=== PATIENT | female | born 1980 | race Caucasian/White ===

== ENCOUNTER 2019-03-18 20:04 | Emergency (ER) | payer OTHER ==
[~2019-03-18] VITALS: Ht 152.4 cm; Wt 63.5 kg
[~2019-03-18 20:04] MED LIST: MOBIC15 MG; NEURONTIN600 MG PO; TRAMADOL HCL-AP1 TAB PO
[2019-03-18] MEDS ORDERED: VERAPAMIL ER300 MG (20:21)
[2019-03-18] MEDS ORDERED: PROZAC10 MG (20:21)
== END 2019-03-18 23:30 | disposition home or self-care (01) ==
LOC: ER 20:04
DX: G44.89 Other headache syndrome (principal); K52.89 Other specified noninfective gastroenteritis and colitis; R10.13 Epigastric pain; E86.0 Dehydration

== ENCOUNTER 2019-08-06 07:55 | Emergency (ER) | payer OTHER ==
[~2019-08-06] VITALS: Ht 152.4 cm; Wt 72.6 kg
[~2019-08-06 07:55] MED LIST changes: +PROZAC10 MG; +VERAPAMIL ER300 MG
[2019-08-06] MEDS ORDERED: VERELAN240 MG PO (08:17)
[2019-08-06] MEDS ORDERED: TRAZODONE HCL100 MG PO (08:18)
[2019-08-06] MEDS ORDERED: TOPAMAX25 MG PO (08:18)
[2019-08-06] MEDS ORDERED: PRILOSEC OTC20 MG PO (08:19)
[2019-08-06] MEDS ORDERED: DICY20TA PO (08:19)
== END 2019-08-06 15:00 | disposition home or self-care (01) ==
LOC: ER 07:55
DX: R51 Headache (principal); R53.1 Weakness

== ENCOUNTER 2023-11-02 07:46 | Inpatient (IN) | payer OTHER ==
[~2023-11-02] VITALS: Ht 152.4 cm; Wt 99.8 kg
[~2023-11-02 07:46] MED LIST changes: +DICY20TA PO; +PRILOSEC OTC20 MG PO; +TOPAMAX25 MG PO; +TRAZODONE HCL100 MG PO; +VERELAN240 MG PO
[2023-11-02 08:43] LABS: HEMATOCRIT 38.4 % (36.0-45.00); HEMOGLOBIN 13.3 g/dL (12.0-15.00); MEAN CELL VOLUME 89.7 fL (80.00-100.00); MEAN CORPUSCULAR HGB CONC 34.6 g/dl (32.0-36.0); PLATELET COUNT 216 K/uL (150-450); RED BLOOD COUNT 4.28 M/uL (4.00-6.00); RED CELL DISTRIBUTION WIDTH 13.1 % (11.5-14.5)
[2023-11-02 09:00] LABS: PARTIAL THROMBOPLASTIN TIME 27.6 SECONDS (22.0-34.0); PROTHROMBIN TIME 10.5 SECONDS (9.0-11.5)
[2023-11-02] MEDS ORDERED: ONDANSETRON HCL 2 MG/ML VIAL IV PRN (09:30)
[2023-11-02] MEDS ORDERED: MORPHINE SULFATE 4 MG/ML CARTRIDGE IV PRN (09:30)
[2023-11-02] MEDS ORDERED: GABAPENTIN 800 MG TABLET PO PRN (09:30)
[2023-11-02] MEDS ORDERED: ACETAMINOPHEN 500 MG GEL..CAP PO PRN (09:30)
[2023-11-02] MEDS ORDERED: CLONAZEPAM 1 MG TABLET PO PRN (09:30)
[2023-11-02] MEDS ORDERED: RINGERS SOLUTION,LACTATED 1,000 ML IV SCH (09:30)
[2023-11-02] MEDS ORDERED: HYOSCYAMINE SULFATE 0.125 MG TAB.SUBL SL PRN (09:30)
[2023-11-02 09:41] LABS: ALBUMIN 3.8 gm/dL (3.4-5.0); BILIRUBIN TOTAL 0.35 mg/dL (0.3-1.2); CALCIUM 9.1 mg/dL (8.5-10.1); CREATININE SERUM 0.88 mg/dL (0.55-1.02); GFR 70.13; GLOBULINA 3.3 G/DL (2.4-3.5); POTASSIUM 3.76 mEq/L (3.5-5.1); TOTAL PROTEIN 7.1 gm/dL (6.4-8.2)
[2023-11-02 11:00] LABS: URINE APPEARANCE Clear; URINE BILIRRUBIN Negative (NEGATIVE); URINE BLOOD Negative; URINE COLOR Yellow; URINE GLUCOSE Negative (NEGATIVE); URINE LEUKOCYTE Negative; URINE NITRATE Negative; URINE PROTEIN Negative (NEGATIVE); URINE UROBILINOGEN 0.2 E.U./dl
[2023-11-02 11:05] LABS: URINE BACTERIA 17.6 uL (0.0-1933)
[2023-11-02 11:29] LABS: URINE EPITHELIAL CELLS 0.4 uL (0.0-38.8); URINE RBC 0.7 uL (0.0-20.8); URINE WBC 0.6 uL (0.0-23.2)
[2023-11-02] MEDS ORDERED: VERAPAMIL HCL 120 MG TABLET PO SCH (17:00)
[2023-11-02] MEDS ORDERED: DEXAMETHASONE SODIUM PHOSPHATE 4 MG/ML VIAL IV SCH (17:00)
[2023-11-02] MEDS ORDERED: PATIENTS OWN MEDICATION (MEDICAMENTO EN PISO) PO SCH ×2 (17:00)
[2023-11-02] MEDS ORDERED: TRAZODONE HCL 50 MG TABLET PO SCH (21:00)
[2023-11-02] MEDS ORDERED: FAMOTIDINE/PF 20 MG/2 ML VIAL IV PUSH SCH (21:00)
[2023-11-02] MEDS ORDERED: MORPHINE SULFATE 2 MG/ML CARTRIDGE IV PRN (22:45)
[2023-11-02] MEDS ORDERED: NALOXONE HCL 0.4 MG/ML AMPUL IV PRN (23:00)
[2023-11-02] MEDS ORDERED: DIPHENHYDRAMINE HCL 50 MG/ML VIAL 1ML IV PRN (23:00)
[2023-11-03] MEDS ORDERED: FLUOXETINE HCL 20 MG CAPSULE PO SCH (09:00)
[2023-11-03] MEDS ORDERED: SENNA/DOCUSATE SODIUM 1 TAB TABLET PO SCH (21:00)
[2023-11-04] MEDS ORDERED: PATIENTS OWN MEDICATION (MEDICAMENTO EN PISO) PO SCH (09:00)
[2023-11-04] MEDS ORDERED: fentaNYL 25 MCG PATCH.TD72 TD SCH (20:45)
[2023-11-04] MEDS ORDERED: DEXAMETHASONE SODIUM PHOSPHATE 4 MG/ML VIAL IV SCH (21:00)
[2023-11-05] MEDS ORDERED: DEXAMETHASONE SODIUM PHOSPHATE 4 MG/ML VIAL ONE (21:22)
[2023-11-06] MEDS ORDERED: DIPHENHYDRAMINE HCL 50 MG/ML VIAL 1ML IV PRN (15:45)
[2023-11-06] MEDS ORDERED: DEXAMETHASONE SODIUM PHOSPHATE 4 MG/ML VIAL ONE (20:39)
[2023-11-07 07:55] LABS: HEMATOCRIT 37.4 % (36.0-45.00); HEMOGLOBIN 12.6 g/dL (12.0-15.00); MEAN CELL VOLUME 88.9 fL (80.00-100.00); MEAN CORPUSCULAR HEMOGLOBIN 30.1 pg (27.00-32.0); MEAN CORPUSCULAR HGB CONC 33.8 g/dl (32.0-36.0); PLATELET COUNT 187 K/uL (150-450); RED CELL DISTRIBUTION WIDTH 13.2 % (11.5-14.5)
[2023-11-07 08:11] LABS: BILIRUBIN TOTAL 0.19 mg/dL (0.3-1.2); CALCIUM 8.7 mg/dL (8.5-10.1); CREATININE SERUM 0.83 mg/dL (0.55-1.02); GFR 75.03; GLOBULINA 3.1 G/DL (2.4-3.5); POTASSIUM 4.26 mEq/L (3.5-5.1); TOTAL PROTEIN 6.1 gm/dL (6.4-8.2)
[2023-11-08] MEDS ORDERED: fentaNYL 25 MCG PATCH.TD72 TD SCH (10:00)
[2023-11-10] MEDS ORDERED: VERAPAMIL HCL120 M3 PO (18:15)
[2023-11-10] MEDS ORDERED: PROZAC20 MG PO (18:16)
[2023-11-10] MEDS ORDERED: CLONAZEPAM1 MG PO (18:16)
[2023-11-10] MEDS ORDERED: GABAPENTIN800 MG PO (18:18)
[2023-11-10] MEDS ORDERED: TOPAMAX25 MG PO (18:19)
[2023-11-10] MEDS ORDERED: TRAZODONE HCL50 MG PO (18:19)
[2023-11-10] MEDS ORDERED: TRAZODONE HCL100 MG PO (18:20)
[2023-11-10] MEDS ORDERED: SENOKOT-S TABL1 EACH PO (18:21)
[2023-11-10] MEDS ORDERED: PRILOSEC OTC20 MG PO (18:21)
== END 2023-11-10 18:51 | disposition home or self-care (01) | DRG 841 ==
LOC: SURH 07:46
PROVIDERS: ADMIT Internal Medicine Hematology & Oncology; ATTEND Internal Medicine Hematology & Oncology
PROC: BD11YZZ Fluoroscopy of Esophagus using Other Contrast (ICD-10-PCS; 2023-11-03)
PROC: 079T3ZX Drainage of Bone Marrow, Percutaneous Approach, Diagnostic (ICD-10-PCS; principal; 2023-11-05)
PROC: 07DR3ZX Extraction of Iliac Bone Marrow, Percutaneous Approach, Diagnostic (ICD-10-PCS; 2023-11-05)
DX: C90.00 Multiple myeloma not having achieved remission (principal); G40.119 Localization-related (focal) (partial) symptomatic epilepsy and epileptic syndromes with simple partial seizures, intractable, without status epilepticus; C88.8 Other malignant immunoproliferative diseases; G89.3 Neoplasm related pain (acute) (chronic)

== ENCOUNTER 2024-01-30 16:08 | Inpatient (IN) | payer OTHER ==
[~2024-01-30] VITALS: Ht 165.1 cm; Wt 90.7 kg
[~2024-01-30 16:08] MED LIST changes: +CLONAZEPAM1 MG PO; +GABAPENTIN800 MG PO; +PROZAC20 MG PO; +SENOKOT-S TABL1 EACH PO; +TRAZODONE HCL50 MG PO; +VERAPAMIL HCL120 M3 PO
--- NOTE | 2024-01-30 16:33 | NUR ---
PACIENTE ALERTA Y ORIENTADA X 3. REFIERE 1 SEMANA CON DOLOR ABDOMINAL, DIARREAS MAREOS Y DEBILIDAD. HOY DIARREAS X 3.
[2024-01-30] MEDS ORDERED: HYOSCYAMINE SULFATE 0.125 MG TAB.SUBL SL ONE (18:15)
[2024-01-30] MEDS ORDERED: FAMOTIDINE/PF 20 MG/2 ML VIAL IV PUSH ONE (18:15)
[2024-01-30] MEDS ORDERED: 0.9 % SODIUM CHLORIDE 1,000 ML IV SCH ×2 (18:15→23:45)
[2024-01-30] MEDS ORDERED: METRONIDAZOLE/SODIUM CHLORIDE 500 MG/100 ML PIGGYBACK IV ONE (18:15)
[2024-01-30 18:56] LABS: HEMATOCRIT 38.1 % (36.0-45.00); HEMOGLOBIN 12.8 g/dL (12.0-15.00); MEAN CELL VOLUME 86.7 fL (80.00-100.00); MEAN CORPUSCULAR HEMOGLOBIN 29.1 pg (27.00-32.0); MEAN CORPUSCULAR HGB CONC 33.5 g/dl (32.0-36.0); PLATELET COUNT 207 K/uL (150-450); RED CELL DISTRIBUTION WIDTH 13.7 % (11.5-14.5)
--- NOTE | 2024-01-30 19:00 | NUR ---
SE EDUCA A PACIENTE SOBRE TRATAMIENTO MEDICO EL CUAL REFIERE ENTENDER. SE PROCEDE ADMINISTRAR MEDICMANETOS DANUTA ORDEN MEDICA Y SAMIA DE MUESTRAS BAJO MEDIDAS ASEPTICAS.
[2024-01-30 19:14] LABS: CALCIUM 8.6 mg/dL (8.5-10.1); CREATININE SERUM 0.85 mg/dL (0.55-1.02)
[2024-01-30 19:19] LABS: POTASSIUM 2.91 mEq/L (3.5-5.1)
--- NOTE | 2024-01-30 19:28 | NUR ---
PACIENTE EVALUADO POR QUIEN ORDENA TRATAMIENTO MEDICO, SE LE ORIENTA A PACIENTE SOBRE EL MISMO Y VERBALIZA ENTNDER, SE LE COLECTAN MUESTRAS DE LABORATORIO Y SE CANALIZA BAJO MEDIDDAS ASEPTICAS.
[2024-01-30] MEDS ORDERED: MEPERIDINE HCL/PF 50 MG/ML VIAL IV ONE (21:00)
[2024-01-30] MEDS ORDERED: POTASSIUM CHLORIDE IN WATER 40 MEQ/100 ML PIGGYBAG IV SCH (23:41)
[2024-01-30] MEDS ORDERED: POTASSIUM BICARBONATE/CIT AC 25 MEQ TABLET.EFF PO SCH (23:41)
[2024-01-30] MEDS ORDERED: ACETAMINOPHEN 500 MG GEL..CAP PO PRN (23:45)
[2024-01-31 01:10] LABS: MAGNESIUM 2.3 mg/dL (1.8-2.4); PHOSPHOROUS 3.4 mg/dL (2.5-4.9)
[2024-01-31] MEDS ORDERED: PROMETHAZINE HCL 25 MG/ML AMPUL IM ONE (06:00)
[2024-01-31] MEDS ORDERED: MEPERIDINE HCL/PF 50 MG/ML VIAL IM ONE (06:00)
--- NOTE | 2024-01-31 07:37 | NUR ---
SE RECIBE PTE ALERTA Y ORIENTADA X3 LA MISMA SE OBSERVA CON CANALIZACION EN MANO DERECHA #24 POR DONDE BAJA .9 NSS @ 80ML/HR Y KCL POR IVPUM @3ML/HR. SE REALIZAN VITALES Y SE DOCUMENTAN EN SISTEMA.
[2024-01-31] MEDS ORDERED: 0.9 % SODIUM CHLORIDE 1,000 ML IV SCH (08:15)
[2024-01-31] MEDS ORDERED: ACETAMINOPHEN 500 MG GEL..CAP PO PRN (08:15)
[2024-01-31] MEDS ORDERED: ONDANSETRON HCL 4 MG in 0.9 % SODIUM CHLORIDE 50 ML IV PRN (08:15)
[2024-01-31] MEDS ORDERED: MEPERIDINE HCL/PF 25 MG/ML VIAL IM PRN (08:15)
[2024-01-31] MEDS ORDERED: TOPAMAX 100 MG PO SCH (09:00)
[2024-01-31] MEDS ORDERED: VERAPAMIL HCL 120 MG TABLET PO SCH (09:00)
[2024-01-31] MEDS ORDERED: FAMOTIDINE/PF 20 MG in 0.9 % SODIUM CHLORIDE 8 ML IV PUSH SCH (09:00)
[2024-01-31] MEDS ORDERED: METRONIDAZOLE/SODIUM CHLORIDE 100 ML IV SCH (09:00)
[2024-01-31] MEDS ORDERED: CEFTRIAXONE SODIUM 2,000 MG in 0.9 % SODIUM CHLORIDE 100 ML IV SCH (09:00)
[2024-01-31] MEDS ORDERED: GABAPENTIN 800 MG TABLET PO SCH (09:00)
[2024-01-31 11:24] LABS: PH,URINE 6.5 (5.0-8.0); URINE APPEARANCE Clear; URINE BILIRRUBIN Negative (NEGATIVE); URINE BLOOD Negative; URINE COLOR Yellow; URINE GLUCOSE Negative (NEGATIVE); URINE LEUKOCYTE Small; URINE NITRATE Negative; URINE PROTEIN Negative (NEGATIVE); URINE UROBILINOGEN 0.2 E.U./dl
[2024-01-31 11:28] LABS: URINE BACTERIA 70.4 uL (0.0-1933); URINE EPITHELIAL CELLS 10.3 uL (0.0-38.8); URINE WBC 20.2 uL (0.0-23.2)
[2024-01-31 16:19] LABS: INR 1.05; PARTIAL THROMBOPLASTIN TIME 26.9 SECONDS (22.0-34.0)
[2024-01-31] MEDS ORDERED: TRAZODONE HCL 50 MG TABLET PO SCH (17:00)
[2024-02-01] MEDS ORDERED: TRAMADOL HCL 50 MG TABLET PO SCH (12:14)
[2024-02-01] MEDS ORDERED: DICYCLOMINE HCL 20 MG TABLET PO SCH (13:00)
[2024-02-01] MEDS ORDERED: PANTOPRAZOLE SODIUM 40 MG/VIAL VIAL IV SCH (17:00)
[2024-02-01 20:00] LABS: ALBUMIN 3.4 gm/dL (3.4-5.0); BILIRUBIN TOTAL 0.15 mg/dL (0.3-1.2); CALCIUM 9.2 mg/dL (8.5-10.1); CREATININE SERUM 0.94 mg/dL (0.55-1.02); GFR 64.99; GLOBULINA 3.2 G/DL (2.4-3.5); POTASSIUM 4.37 mEq/L (3.5-5.1); TOTAL PROTEIN 6.6 gm/dL (6.4-8.2)
[2024-02-02] MEDS ORDERED: LACTOBACILLUS ACIDOPHILUS 1 CAP CAP PO SCH (13:00)
[2024-02-03] MEDS ORDERED: MORPHINE SULFATE 4 MG/ML VIAL IV PRN (12:00)
[2024-02-03] MEDS ORDERED: MORPHINE SULFATE 4 MG/ML CARTRIDGE IV PRN (14:00)
[2024-02-03] MEDS ORDERED: AMINO ACIDS 4.25 %/DEXTROSE 5% 2,000 ML PERIFERAL SCH (17:00)
[2024-02-04 06:44] LABS: HEMATOCRIT 41.1 % (36.0-45.00); HEMOGLOBIN 13.7 g/dL (12.0-15.00); MEAN CELL VOLUME 89.6 fL (80.00-100.00); MEAN CORPUSCULAR HEMOGLOBIN 29.8 pg (27.00-32.0); MEAN CORPUSCULAR HGB CONC 33.3 g/dl (32.0-36.0); RED BLOOD COUNT 4.59 M/uL (4.00-6.00); RED CELL DISTRIBUTION WIDTH 13.7 % (11.5-14.5)
[2024-02-04 07:10] LABS: ALBUMIN 3.3 gm/dL (3.4-5.0); BILIRUBIN TOTAL 0.31 mg/dL (0.3-1.2); CALCIUM 8.8 mg/dL (8.5-10.1); CHOL HDL RATIO 2.6 (0-5.0); CREATININE SERUM 0.85 mg/dL (0.55-1.02); GLOBULINA 3.1 G/DL (2.4-3.5); POTASSIUM 4.14 mEq/L (3.5-5.1); TOTAL PROTEIN 6.4 gm/dL (6.4-8.2)
[2024-02-04 07:58] LABS: PLATELET COUNT 178 K/uL (150-450)
[2024-02-05] MEDS ORDERED: SIMETHICONE 125 MG CAPSULE PO SCH (17:00)
== END 2024-02-07 13:11 | disposition home or self-care (01) | DRG 392 ==
LOC: ER 16:09 → MEDJ 01-31 09:04 → MEDI 02-03 16:36
PROVIDERS: Emergency Medicine; General Practice; ADMIT Internal Medicine; ATTEND Internal Medicine
DX: K52.9 Noninfective gastroenteritis and colitis, unspecified (principal); E87.6 Hypokalemia; E86.0 Dehydration; I10 Essential (primary) hypertension; M54.16 Radiculopathy, lumbar region; Q07.01 Arnold-Chiari syndrome with spina bifida; D18.02 Hemangioma of intracranial structures; R56.9 Unspecified convulsions

== ENCOUNTER 2024-02-21 13:57 | Emergency (ER) | payer OTHER ==
[~2024-02-21] VITALS: Ht 152.4 cm; Wt 90.7 kg
[2024-02-21] MEDS ORDERED: HYOSCYAMINE SULFATE 0.125 MG TAB.SUBL SL ONE (16:30)
[2024-02-21] MEDS ORDERED: PANTOPRAZOLE SODIUM 40 MG/VIAL VIAL IV PUSH ONE (16:30)
[2024-02-21] MEDS ORDERED: ONDANSETRON HCL 2 MG/ML VIAL IV ONE (16:30)
[2024-02-21] MEDS ORDERED: 0.9 % SODIUM CHLORIDE 1,000 ML IV ONE (16:30)
[2024-02-21 17:04] LABS: HEMATOCRIT 39.6 % (36.0-45.00); HEMOGLOBIN 13.2 g/dL (12.0-15.00); MEAN CELL VOLUME 88.8 fL (80.00-100.00); MEAN CORPUSCULAR HEMOGLOBIN 29.7 pg (27.00-32.0); MEAN CORPUSCULAR HGB CONC 33.5 g/dl (32.0-36.0); PLATELET COUNT 239 K/uL (150-450); RED BLOOD COUNT 4.45 M/uL (4.00-6.00); RED CELL DISTRIBUTION WIDTH 13.8 % (11.5-14.5)
[2024-02-21 17:13] LABS: INR 1.03; PARTIAL THROMBOPLASTIN TIME 26.1 SECONDS (22.0-34.0); PROTHROMBIN TIME 10.8 SECONDS (9.0-11.5)
[2024-02-21 17:25] LABS: ALBUMIN 3.4 gm/dL (3.4-5.0); BILIRUBIN TOTAL 0.23 mg/dL (0.3-1.2); CALCIUM 8.9 mg/dL (8.5-10.1); CREATININE SERUM 0.92 mg/dL (0.55-1.02); GFR 66.62; GLOBULINA 3.5 G/DL (2.4-3.5); POTASSIUM 3.86 mEq/L (3.5-5.1); TOTAL PROTEIN 6.9 gm/dL (6.4-8.2)
[2024-02-21 19:07] LABS: URINE APPEARANCE Clear; URINE BILIRRUBIN Negative (NEGATIVE); URINE BLOOD Negative; URINE COLOR Yellow; URINE GLUCOSE Negative (NEGATIVE); URINE LEUKOCYTE Trace; URINE NITRATE Negative; URINE PROTEIN Negative (NEGATIVE); URINE UROBILINOGEN 0.2 E.U./dl
[2024-02-21 19:08] LABS: URINE BACTERIA 11.3 uL (0.0-1933); URINE EPITHELIAL CELLS 2.4 uL (0.0-38.8); URINE WBC 10.7 uL (0.0-23.2)
[2024-02-21 19:19] LABS: URINE RBC 0.7 uL (0.0-20.8)
[2024-02-21] MEDS ORDERED: SUCRALFATE 1 G TABLET PO ONE (20:45)
[2024-02-21] MEDS ORDERED: FAMOtidine 10 MG/ML (4ML VIAL) IV PUSH ONE (20:45)
== END 2024-02-21 20:50 | disposition home or self-care (01) ==
LOC: ER 13:58
PROVIDERS: General Practice
DX: K52.9 Noninfective gastroenteritis and colitis, unspecified (principal); Z88.8 Allergy status to other drugs, medicaments and biological substances
CPT/HCPCS: 36415; 74176; 96365; 96366; 99283; J2405; J3490

== ENCOUNTER 2024-09-07 08:47 | Emergency (ER) | payer OTHER ==
[~2024-09-07] VITALS: Ht 152.4 cm; Wt 99.8 kg
[2024-09-07] MEDS ORDERED: DICY20TA (09:27)
[2024-09-07] MEDS ORDERED: LEVALBUTEROL HCL 1.25 MG/3 ML SOLUTION IH SCH (09:45)
[2024-09-07] MEDS ORDERED: DEXAMETHASONE SODIUM PHOSPHATE 4 MG/ML VIAL IM ONE (09:45)
[2024-09-07] MEDS ORDERED: DEXAMETHASONE SODIUM PHOSPHATE 4 MG/ML VIAL ONE (09:45)
[2024-09-07] MEDS ORDERED: GUAIFENESIN/DEXTROMETHORPHAN 10ML BLIST.PACK PO ONE ×2 (09:45)
[2024-09-07] MEDS ORDERED: AZITHROMYCIN 500 MG TABLET PO ONE ×2 (09:45)
[2024-09-07] MEDS ORDERED: ONDANSETRON HCL 2 MG/ML VIAL ONE (09:49)
[2024-09-07] MEDS ORDERED: AZITHROMYCIN 500 MG VIAL IV ONE ×2 (09:49→10:00)
[2024-09-07] MEDS ORDERED: ONDANSETRON HCL 2 MG/ML VIAL IV ONE (10:00)
[2024-09-07] MEDS ORDERED: LEVALBUTEROL HCL 1.25 MG/3 ML SOLUTION IH ONE (10:12)
[2024-09-07 10:43] LABS: HEMATOCRIT 40.7 % (36.0-45.00); HEMOGLOBIN 13.6 g/dL (12.0-15.00); MEAN CELL VOLUME 87.9 fL (80.00-100.00); MEAN CORPUSCULAR HEMOGLOBIN 29.5 pg (27.00-32.0); MEAN CORPUSCULAR HGB CONC 33.5 g/dl (32.0-36.0); PLATELET COUNT 245 K/uL (150-450); RED BLOOD COUNT 4.63 M/uL (4.00-6.00); RED CELL DISTRIBUTION WIDTH 14.3 % (11.5-14.5)
[2024-09-07 11:16] LABS: ALBUMIN 3.6 gm/dL (3.4-5.0); BILIRUBIN TOTAL 0.24 mg/dL (0.3-1.2); CALCIUM 9.3 mg/dL (8.5-10.1); CREATININE SERUM 0.84 mg/dL (0.55-1.02); GLOBULINA 4.2 G/DL (2.4-3.5); POTASSIUM 3.94 mEq/L (3.5-5.1); TOTAL PROTEIN 7.8 gm/dL (6.4-8.2)
[2024-09-07] MEDS ORDERED: TUSNEL LIQUID178 ML PO (11:50)
[2024-09-07] MEDS ORDERED: XOPENEX CO1.25 MG/0. IH (11:50)
[2024-09-07] MEDS ORDERED: ZITHROMAX500 MG PO (11:50)
== END 2024-09-07 12:55 | disposition home or self-care (01) ==
LOC: ER 08:50
PROVIDERS: General Practice
DX: R53.81 Other malaise (principal); J06.9 Acute upper respiratory infection, unspecified; Z88.8 Allergy status to other drugs, medicaments and biological substances
CPT/HCPCS: 36415; 71046; 94640; 96365; 96372; 99283; J0456; J1100 ×2

== ENCOUNTER 2025-01-31 07:42 | Emergency (ER) | payer OTHER ==
[~2025-01-31] VITALS: Ht 152.4 cm; Wt 99.8 kg
[~2025-01-31 07:42] MED LIST changes: +DICY20TA; +TUSNEL LIQUID178 ML PO; +XOPENEX CO1.25 MG/0. IH; +ZITHROMAX500 MG PO
[2025-01-31] MEDS ORDERED: ATORVASTATIN CA40 MG PO (07:57)
[2025-01-31] MEDS ORDERED: ONDANSETRON HCL 2 MG/ML VIAL ONE (08:59)
[2025-01-31] MEDS ORDERED: HYOSCYAMINE SULFATE 0.125 MG TAB.SUBL SL ONE (09:00)
[2025-01-31] MEDS ORDERED: FAMOTIDINE/PF 20 MG/2 ML VIAL IV PUSH ONE (09:00)
[2025-01-31] MEDS ORDERED: 0.9 % SODIUM CHLORIDE 1,000 ML IV SCH (09:00)
[2025-01-31] MEDS ORDERED: FAMOTIDINE/PF 20 MG/2 ML VIAL ONE (09:00)
[2025-01-31] MEDS ORDERED: ONDANSETRON HCL 2 MG/ML VIAL IV ONE (09:00)
[2025-01-31] MEDS ORDERED: HYOSCYAMINE SULFATE 0.125 MG TAB.SUBL ONE (09:00)
[2025-01-31 09:45] LABS: BASO % 0.4 % (0.1-1.2); EOS # 0.18 (0.04-0.54); EOS % 3.5 % (0.7-7.0); HEMATOCRIT 39.7 % (34.1-44.9); HEMOGLOBIN 12.9 g/dL (11.2-15.7); LYMPH % 27.1 % (19.3-53.1); MEAN CORPUSCULAR HEMOGLOBIN 28.3 pg (25.6-32.2); MONO # 0.43 (0.24-0.82); MONO % 8.3 % (4.7-12.5); NEUT # 3.14 (1.56-6.13); NEUT % 60.7 % (34.0-71.1); PLATELET COUNT 261 K/uL (163-369); RED BLOOD COUNT 4.56 M/uL (3.93-5.22); RED CELL DISTRIBUTION WIDTH 13.5 % (11.6-14.4)
[2025-01-31 10:09] LABS: ALBUMIN 3.6 gm/dL (3.4-5.0); BILIRUBIN TOTAL 0.36 mg/dL (0.3-1.2); CALCIUM 9.2 mg/dL (8.5-10.1); CREATININE SERUM 0.94 mg/dL (0.55-1.02); GFR 64.69; GLOBULINA 3.8 G/DL (2.4-3.5); POTASSIUM 3.54 mEq/L (3.5-5.1); TOTAL PROTEIN 7.4 gm/dL (6.4-8.2)
[2025-01-31 10:46] LABS: URINE APPEARANCE Clear; URINE BILIRRUBIN Negative (NEGATIVE); URINE BLOOD Negative; URINE COLOR Yellow; URINE GLUCOSE Negative (NEGATIVE); URINE KETONE Negative (NEGATIVE); URINE LEUKOCYTE Negative; URINE NITRATE Negative; URINE PROTEIN Negative (NEGATIVE); URINE UROBILINOGEN 0.2 E.U./dl
[2025-01-31 10:51] LABS: URINE BACTERIA 59.9 uL (0.0-1933); URINE EPITHELIAL CELLS 8.8 uL (0.0-38.8); URINE RBC 2.7 uL (0.0-20.8); URINE WBC 7.2 uL (0.0-23.2)
[2025-01-31 10:52] LABS: URINE CAST 0.14 uL (0.0-1.40)
[2025-01-31] MEDS ORDERED: MORPHINE SULFATE 4 MG/ML CARTRIDGE IV ONE (11:30)
== END 2025-01-31 13:24 | disposition home or self-care (01) ==
LOC: ER 07:42
PROVIDERS: Emergency Medicine
DX: K29.70 Gastritis, unspecified, without bleeding (principal); K21.9 Gastro-esophageal reflux disease without esophagitis; G93.5 Compression of brain; K44.9 Diaphragmatic hernia without obstruction or gangrene; Z88.8 Allergy status to other drugs, medicaments and biological substances